=== PATIENT | male | born 1970 ===

== ENCOUNTER 2024-11-13 11:28 | Outpatient (CLI) | payer BC, SELFPAY | END 2024-11-13 11:29 | disposition home or self-care (01) | PROVIDERS: PCP Family Medicine; Referring Provider Family Medicine; Visit Provider Family Medicine | DX: Z00.00 Encounter for general adult medical examination without abnormal findings (principal); G47.00 Insomnia, unspecified; K50.818 Crohn's disease of both small and large intestine with other complication; I10 Essential (primary) hypertension; K21.9 Gastro-esophageal reflux disease without esophagitis; Z12.5 Encounter for screening for malignant neoplasm of prostate | CPT/HCPCS: 80053; 80061; 84443; G0103 ==